=== PATIENT | male | born 1965 | race Caucasian/White ===

== ENCOUNTER 2024-02-05 05:00 | Emergency (ER) | payer OTHER ==
[2024-02-05 05:29] VITALS: TEMP 97
--- NOTE | 2024-02-05 05:36 | ERPHSYRPT ---
- History of Present Illness Source: patient Exam Limitations: clinical condition, intoxication Patient Subjective Stated Complaint: pt states he got drunk, passed out, and hit his back on the tub Triage Nursing Assessment: pt came into the er via wheelchair; pt is axo x4; c/o left mid back pain; no bruising or deformity present to back; pt is moaning, guarding, and facial grimacing; no respiratory distress present; hypotensive; skin PDW Timing/Duration: today Severity: moderate Associated Symptoms: other (Mildly lethargic, left of thoracic level back pain and left-sided rib pain, left of lumbar level back pain and left hip pain) Hx Tetanus, Diphtheria Vaccination/Date Given: Yes Hx Influenza Vaccination/Date Given: No Hx Pneumococcal Vaccination/Date Given: No Immunizations Up to Date: No <HANK ANDRADE - Last Filed: 02/05/24 06:57> <JASMYNE FITZPATRICK - Last Filed: 02/05/24 09:38> - History of Present Illness Time Seen by Provider: 02/05/24 05:25 Physician History: This is a 58-year-old white male patient who presented by private vehicle. Patient states "I got drunk and passed out" he fell in the bathtub and now complains of pain to the left of mid 9 back and left ribs as well as left of lumbar spine level pain and left hip pain patient admits to consuming alcohol, marijuana, and consuming mushrooms last evening. Patient has never been seen in this emergency department in the past. Patient is lethargic but arousable. Patient's systolic blood pressure on admission to the emergency department is 88. Patient has a history of hypertension, hypoglycemia. His blood sugar Accu-Chek number is 87 on arrival to the emergency department. He has a history of sleep apnea, arthritis, and chronic anemia. He also admits to trying to quit smoking and has been prescribed nicotine patches. However, he does continue to do light tobacco smoking. (HANK ANDRADE) Allergies/Adverse Reactions: codeine Adverse Reaction (Verified 02/05/24 05:06) Itching Travel Risk - International Travel Have you traveled outside of the country in past 3 weeks: No - Emerging Infectious Disease Are you exhibiting symptoms associated with any current EIDs: No <HANK ANDRADE - Last Filed: 02/05/24 06:57> - Review of Systems Constitutional: No Symptoms Eyes: No Symptoms Ears, Nose, & Throat: No Symptoms Respiratory: No Symptoms Cardiac: No Symptoms Abdominal/Gastrointestinal: No Symptoms Genitourinary Symptoms: No Symptoms Musculoskeletal: Fall, Injury Skin: No Symptoms Neurological: Lethargy (Arousable) Psychological: Alcohol Abuse Endocrine: No Symptoms Hematologic/Lymphatic: No Symptoms Immunological/Allergic: No Symptoms All Other Systems: Reviewed and Negative <HANK ANDRADE - Last Filed: 02/05/24 06:57> - Past Medical History Pertinent Past Medical History: Yes Neurological History: No Pertinent History ENT History: No Pertinent History Cardiac History: Hypertension Respiratory History: Sleep Apnea Endocrine Medical History: Hypoglycemia Musculoskeletal History: Arthritis, Fractures GI Medical History: GI Bleed, Hernia, Other Psycho-Social History: Depression Male Reproductive Disorders: Prostate Problems Other Medical History: anemia, gout - Past Surgical History Past Surgical History: Yes Neuro Surgical History: No Pertinent History Cardiac: No Pertinent History Respiratory: No Pertinent History Gastrointestinal: No Pertinent History Genitourinary: No Pertinent History Musculoskeletal: Joint Replacement Male Surgical History: No Pertinent History Other Surgical History: any knee replacement, gastric bypass, vein, left ankle - Social History Smoking Status: Light tobacco smoker Exposure to second hand smoke: Yes Drug Use: marijuana, other - Social Determinants of Health Will the patient participate in the screening: Yes Do you worry about a steady place to live?: No Do you have any problems with any of the following?: No known problems In the past 12 months,have you had to go without utilities?: No Transportation Issues: No Has anyone in your support network made you feel unsafe?: No Have you or anyone in your house had to go without enough: No <HANK ANDRADE - Last Filed: 02/05/24 06:57> - Physical Exam General Appearance: no apparent distress, lethargy (Mild but arousable) Eye Exam: PERRL/EOMI, post op pupil defect (L) Ears, Nose, Throat Exam: normal ENT inspection, dry mucous membranes Neck Exam: normal inspection, non-tender, supple, full range of motion, other (Cervical spine cleared clinically) Respiratory Exam: normal breath sounds, airway intact, other (Left posterior lateral rib pain), No chest tenderness, No respiratory distress Cardiovascular Exam: regular rate/rhythm, normal heart sounds, normal peripheral pulses Gastrointestinal/Abdomen Exam: soft, normal bowel sounds, No tenderness Back Exam: normal inspection, decreased range of motion, muscle spasm (Left of thoracic and lumbar levels), No vertebral tenderness Extremity Exam: normal inspection, pelvis stable (Left hip pain to palpation), No deformities Neurologic Exam: alert, oriented x 3, cooperative, 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, normal mood/affect Skin Exam: normal color, warm, dry Lymphatic Exam: No adenopathy SpO2 Interpretation: normal SpO2: 99 O2 Delivery: Room Air <HANK ANDRADE - Last Filed: 02/05/24 06:57> - Nursing Vital Signs Nursing Vital Signs: Initial Vital Signs Pulse Rate 56 L 02/05/24 05:07 Respiratory Rate 16 02/05/24 05:07 Blood Pressure 88/43 02/05/24 05:07 O2 Sat by Pulse Oximetry 95 02/05/24 05:07 Pain Scale Pain Intensity [Left Posterior 7 Back] Pain Intensity 0 - Course Nursing assessment & vital signs reviewed: Yes EKG Interpreted by Me: RATE (58), Sinus Rhythm, NORMAL AXIS, NORMAL INTERVALS, NORMAL QRS, NORMAL ST-T, Other (No acute ischemic changes on today's twelve-lead EKG. No comparison twelve-lead EKG available) <HANK ANDRADE - Last Filed: 02/05/24 06:57> Ordered Tests: Active Orders 24 hr Category Date Time Status Clean Catch Urine Specimen STAT Care 02/05/24 05:58 Active EKG-ER Only STAT Care 02/05/24 05:58 Active IV Insertion STAT Care 02/05/24 05:58 Active CERVICAL SPINE WO CONTRAST [CT] Stat Exams 02/05/24 06:16 Completed CHEST WITHOUT CONTRAST [CT] Stat Exams 02/05/24 05:58 Completed HEAD WITHOUT CONTRAST [CT] Stat Exams 02/05/24 05:58 Completed LUMBAR SPINE W/O [CT] Stat Exams 02/05/24 05:58 Completed PELVIS WITHOUT CONTRAST [CT] Stat Exams 02/05/24 05:58 Completed RECONSTRUCTION [CT] Stat Exams 02/05/24 06:01 Completed ACETAMINOPHEN Stat Lab 02/05/24 05:23 Completed CBC W DIFF Stat Lab 02/05/24 05:23 Completed CMP Stat Lab 02/05/24 05:23 Completed ETHYL ALCOHOL Stat Lab 02/05/24 05:23 Completed POCT GLUCOSE Stat Lab 02/05/24 05:31 Completed SALICYLATE Stat Lab 02/05/24 05:23 Completed UA W/RFX UR CULTURE Stat Lab 02/05/24 09:08 Completed Urine Triage Profile Stat Lab 02/05/24 09:08 Received Medication Summary Generic Name Dose Route Start Last Admin Trade Name Yuliya PRN Reason Stop Dose Admin Sodium Chloride 1,000 mls @ 999 mls/hr 02/05/24 08:00 02/05/24 09:07 Sodium Chloride 0.9% 1000 Ml IV 02/05/24 08:01 Infused .Q1H1M WALLY Infusion Discontinued Medications Generic Name Dose Route Start Last Admin Trade Name Yuliya PRN Reason Stop Dose Admin Sodium Chloride 1,000 mls @ 999 mls/hr 02/05/24 05:58 02/05/24 07:15 Sodium Chloride 0.9% 1000 Ml IV 02/05/24 06:58 Infused .Q1H1M STA Infusion Sodium Chloride Confirm 02/05/24 06:03 Sodium Chloride 0.9% 1000 Ml Administered 02/05/24 06:04 Dose 1,000 mls @ ud .ROUTE .STK-MED ONE Ondansetron HCl 4 mg 02/05/24 05:58 02/05/24 06:06 Ondansetron Hcl 4 Mg/2 Ml Vial IV 02/05/24 05:59 4 mg STAT ONE Administration Ondansetron HCl Confirm 02/05/24 06:03 Ondansetron Hcl 4 Mg/2 Ml Vial Administered 02/05/24 06:04 Dose 4 mg .ROUTE .STK-MED ONE Lab/Rad Data: Laboratory Result Diagrams 02/05/24 05:23 02/05/24 05:23 Laboratory Results 02/05/24 02/05/24 02/05/24 Range/Units 09:08 05:31 05:23 WBC (4.0-10.5) x10^3/uL RBC (4.1-5.6) x10^6/uL Hgb (12.5-18.0) g/dL Hct (42-50) % MCV (78-100) fL MCH (26-32) pg MCHC (32-36) g/dL RDW (11.5-14.0) % Plt Count (150-450) x10^3/uL MPV (7.5-11.0) fL Gran % (36.0-66.0) % Immature Gran % (Auto) (0.00-0.4) % Nucleat RBC Rel Count (0.00-0.1) % Eos # (Auto) (0-0.5) x10^3/uL Immature Gran # (Auto) (0.00-0.03) x10^3u/L Absolute Lymphs (auto) (1.0-4.6) x10^3/uL Absolute Monos (auto) (0.0-1.3) x10^3/uL Absolute Nucleated RBC (0.00-0.01) x10^3u/L Lymphocytes % (24.0-44.0) % Monocytes % (0.0-12.0) % Eosinophils % (0.00-5.0) % Basophils % (0.0-0.4) % Absolute Granulocytes (1.4-6.9) x10^3/uL Basophils # (0-0.4) x10^3/uL Sodium 141 (135-145) mmol/L Potassium 3.9 (3.5-5.1) mmol/L Chloride 107 (98-107) mmol/L Carbon Dioxide 19 L (22-30) mmol/L Anion Gap 19.0 H (5-15) MEQ/L BUN 22 H (9-20) mg/dL Creatinine 1.85 H (0.66-1.25) mg/dL Estimated GFR 42.2 ML/MIN Glucose 97 (74-106) mg/dL POC Glucometer 87 (74 to 106) mg/dL Calcium 9.0 (8.4-10.2) mg/dL Total Bilirubin 0.40 (0.2-1.3) mg/dL AST 27 (17-59) U/L ALT 21 (0-50) U/L Alkaline Phosphatase 98 (38-126) U/L Serum Total Protein 8.3 H (6.3-8.2) g/dL Albumin 5.0 (3.5-5.0) g/dL Urine Color Yellow (Yellow) Urine Appearance Clear (Clear) Urine pH 5.5 (4.6-8.0) Ur Specific [place] 1.015 (1.005-1.030) Urine Protein 30 (Negative) Urine Glucose (UA) Negative (Negative) mg/dL Urine Ketones Negative (Negative) Urine Blood Small A (Negative) Urine Nitrite Negative (Negative) Urine Bilirubin Negative (Negative) Urine Urobilinogen 1.0 A (0.2) mg/dL Ur Leukocyte Esterase Negative (Negative) Urine Microscopic RBC 0-2 (0-5) /HPF Urine Microscopic WBC 0-2 (0-5) /HPF Ur Epithelial Cells Rare (None Seen) /HPF Urine Bacteria None Seen (None Seen) /HPF Granular Casts 0-2 A (None Seen) /LPF Urine Culture Reflexed NO (NO) Salicylates < 1.0 L (2-20) mg/dL Acetaminophen < 10 L (10-30) ug/ml Ethyl Alcohol 116 H (0-10) mg/dL 02/05/24 Range/Units 05:23 WBC 11.5 H (4.0-10.5) x10^3/uL RBC 4.24 (4.1-5.6) x10^6/uL Hgb 14.1 (12.5-18.0) g/dL Hct 42.2 (42-50) % MCV 99.5 (78-100) fL MCH 33.3 H (26-32) pg MCHC 33.4 (32-36) g/dL RDW 13.2 (11.5-14.0) % Plt Count 231 (150-450) x10^3/uL MPV 10.5 (7.5-11.0) fL Gran % 85.4 H (36.0-66.0) % Immature Gran % (Auto) 0.6 H (0.00-0.4) % Nucleat RBC Rel Count 0.0 (0.00-0.1) % Eos # (Auto) 0.01 (0-0.5) x10^3/uL Immature Gran # (Auto) 0.07 H (0.00-0.03) x10^3u/L Absolute Lymphs (auto) 0.86 L (1.0-4.6) x10^3/uL Absolute Monos (auto) 0.70 (0.0-1.3) x10^3/uL Absolute Nucleated RBC 0.00 (0.00-0.01) x10^3u/L Lymphocytes % 7.5 L (24.0-44.0) % Monocytes % 6.1 (0.0-12.0) % Eosinophils % 0.1 (0.00-5.0) % Basophils % 0.3 (0.0-0.4) % Absolute Granulocytes 9.80 H (1.4-6.9) x10^3/uL Basophils # 0.03 (0-0.4) x10^3/uL Sodium (135-145) mmol/L Potassium (3.5-5.1) mmol/L Chloride (98-107) mmol/L Carbon Dioxide (22-30) mmol/L Anion Gap (5-15) MEQ/L BUN (9-20) mg/dL Creatinine (0.66-1.25) mg/dL Estimated GFR ML/MIN Glucose (74-106) mg/dL POC Glucometer (74 to 106) mg/dL Calcium (8.4-10.2) mg/dL Total Bilirubin (0.2-1.3) mg/dL AST (17-59) U/L ALT (0-50) U/L Alkaline Phosphatase (38-126) U/L Serum Total Protein (6.3-8.2) g/dL Albumin (3.5-5.0) g/dL Urine Color (Yellow) Urine Appearance (Clear) Urine pH (4.6-8.0) Ur Specific [place] (1.005-1.030) Urine Protein (Negative) Urine Glucose (UA) (Negative) mg/dL Urine Ketones (Negative) Urine Blood (Negative) Urine Nitrite (Negative) Urine Bilirubin (Negative) Urine Urobilinogen (0.2) mg/dL Ur Leukocyte Esterase (Negative) Urine Microscopic RBC (0-5) /HPF Urine Microscopic WBC (0-5) /HPF Ur Epithelial Cells (None Seen) /HPF Urine Bacteria (None Seen) /HPF Granular Casts (None Seen) /LPF Urine Culture Reflexed (NO) Salicylates (2-20) mg/dL Acetaminophen (10-30) ug/ml Ethyl Alcohol (0-10) mg/dL <HANK ANDRADE - Last Filed: 02/05/24 06:57> - Progress Progress: improved Counseled pt/family regarding: lab results, diagnosis, need for follow-up, rad results, smoking cessation <JASMYNE FITZPATRICK - Last Filed: 02/05/24 09:38> - Progress Progress Note: 02/05/24 06:08 My medical decision making and the assignment of moderate complexity to this patient's medical issue today is based on review of the patient's past medical history, review the patient's medication list, review the patient's allergy list, history present illness and physical findings on examination. The workup in this patient includes placement of intravenous line, infusion of normal saline solution, infusion of Zofran intravenously, CBC, CMP, urinalysis, urine d rug screen, ethyl alcohol level, salicylate level, acetaminophen level, CT scan of the head, CT scan of the chest with reconstruction of the thoracic spine, CT scan of the lumbar spine and CT scan of the pelvis with specific attention to the left hip. Differential diagnosis includes alcohol intoxication, positive illicit drug screen, intracranial abnormality secondary to fall, arrhythmia, acute injury to thoracic and lumbar spine as well as left ribs and left hip 02/05/24 06:57 I am transferring care of this patient to Dr. Fitzpatrick at shift change. He will follow-up on the results of the studies and make final disposition. (HANK ANDRADE) 02/05/24 09:31 Patient is checked out to me at end of Dr. Andrade shift with pending workup. Patient presented with complaint of fall after having alcohol, smoking marijuana and using some mushrooms. Patient initially was mildly hypotensive, given fluid boluses and during my evaluation blood pressure is improved and currently it is 133 systolic. Patient is moving all 4 extremities, complaining of pain in the left posterolateral rib area and some back pain. Patient workup showed white count of 11, some ZOILA with a creatinine of 1.85, no previous comparison available. Does have alcohol of 116. CT head cervical spine thoracic and lumbar spine are negative for any acute trauma related findings. Negative CT pelvis. CT chest showed mildly displaced left posterolateral eighth/ninth/10th rib fracture with no pneumo or hemothorax. Patient is on room air around 96%. Discussed the results of workup with patient and plan of care with lidocaine patches/Tylenol and deep breathing exercises/outpatient follow-up which she understand and agrees. Patient is not confused or altered at all during my evaluation. Discussed signs symptoms of worsening needing return to ER which he seems understanding as well. (JASMYNE FITZPATRICK) Medical Desision Making - Diagnostic Testing Radiological Interpretation: Reviewed by me, Teleradiologist Report - Risk of complications The pt has a mod risk of morbidity or mortality based on: Need for prescription drug management <JASMYNE FITZPATRICK - Last Filed: 02/05/24 09:38> - Departure Departure Disposition: Home Critical Care Time: No <HANK ANDRADE - Last Filed: 02/05/24 06:57> - Departure Critical Care Time: No <JASMYNE FITZPATRICK - Last Filed: 02/05/24 09:38> - Departure Clinical Impression: Fall, Alcohol intoxication, Ribs, multiple fractures Condition: Stable Referrals: DOCTOR,NO FAMILY [Primary Care Provider] - Follow up with PCP 1 day Instructions: Rib Fracture or Bruised Rib ED Additional Instructions: Deep breathing exercises. Take Tylenol/ibuprofen as needed for pain. Do not drink alcohol/do not smoke marijuana or any other substance abuse. Follow-up with primary care for reevaluation. Return to ER for intractable pain, difficulty breathing, numbness tingling weakness of extremities etc. Prescriptions: Lidocaine HCl 5% Patch [Lidoderm Patch 5%] 1 patch TP DAILY 12 Days #12 patch
[2024-02-05] MEDS ORDERED: Zofran 4 MG/2 ML VIAL ONE (06:03)
[2024-02-05] MEDS ORDERED: Sodium Chloride 0.9% 1000 ML 1,000 ML ONE ×2 (06:03→08:01)
[2024-02-05] MEDS: Sodium Chloride 0.9% 1000 ML 1,000 ML IV STA (06:06)
[2024-02-05] MEDS: Zofran 4 MG/2 ML VIAL IV ONE (06:06)
[2024-02-05 06:16] LABS: BASOPHIL % 0.3 % (0.0-0.4); Basophil (Absolute #) 0.03 x10^3/uL (0-0.4); Eosinophil % 0.1 % (0.00-5.0); Eosinophil (Absolute #) 0.01 x10^3/uL (0-0.5); Hematocrit 42.2 % (42-50); Hemoglobin 14.1 g/dL (12.5-18.0); IMMATURE GRAN # 0.07 x10^3u/L (0.00-0.03); IMMATURE GRAN % 0.6 % (0.00-0.4); Lymphocyte (Absolute #) 0.86 x10^3/uL (1.0-4.6); Lymphocytes % 7.5 % (24.0-44.0); Mean Cell Volume 99.5 fL (78-100); Mean Corpuscular Hemoglobin 33.3 pg (26-32); Mean Corpuscular Hgb Concent. 33.4 g/dL (32-36); Mean Platelet Volume 10.5 fL (7.5-11.0); Monocytes % 6.1 % (0.0-12.0); Neutrophil % 85.4 % (36.0-66.0); Platelet Count 231 x10^3/uL (150-450); Red Blood Count 4.24 x10^6/uL (4.1-5.6); Red Cell Distribution Width 13.2 % (11.5-14.0); White Blood Count 11.5 x10^3/uL (4.0-10.5)
[2024-02-05 06:34] LABS: ACETAMINOPHEN < 10 ug/ml (10-30); ALKALINE PHOSPHATASE 98 U/L (38-126); BLOOD UREA NITROGEN 22 mg/dL (9-20); CHLORIDE 107 mmol/L (98-107); Carbon Dioxide 19 mmol/L (22-30); Creatinine 1 1.85 mg/dL (0.66-1.25); EST GLOMERULAR FILTRATION RATE 42.2 ML/MIN; ETHYL ALCOHOL 116 mg/dL (0-10); Glucose 97 mg/dL (74-106); Potassium 3.9 mmol/L (3.5-5.1); SALICYLATE < 1.0 mg/dL (2-20); SGOT/AST 27 U/L (17-59); SGPT/ALT 21 U/L (0-50); SODIUM 141 mmol/L (135-145); Total Protein 8.3 g/dL (6.3-8.2)
--- NOTE | 2024-02-05 07:45 | XRAY ---
CLINICAL HISTORY: Fall injury COMPARISON: None TECHNIQUE: Multiple contiguous axial images were obtained through the thoracic spine without IV contrast. Sagittal and coronal reformatted images were obtained from the axial data. CT scan was performed according to ALARA (as low as reasonably achievable). FINDINGS: The alignment of the thoracic spine is maintained. Mild degenerative changes are seen in the thoracic spine, in form of anterior endplate osteophytes in the thoracic vertebrae at multiple levels. Thoracic vertebral bodies are maintained in height and alignment. No vertebral destructive changes are seen. C7-T1: No disc bulge. No canal stenosis. No neuroforaminal narrowing. T1-T2: No disc bulge. No canal stenosis. No neuroforaminal narrowing. T2-T3: No disc bulge. No canal stenosis. No neuroforaminal narrowing. T3-T4: No disc bulge. No canal stenosis. No neuroforaminal narrowing. T4-T5: No disc bulge. No canal stenosis. No neuroforaminal narrowing. T5-T6: No disc bulge. No canal stenosis. No neuroforaminal narrowing. T6-T7: No disc bulge. No canal stenosis. No neuroforaminal narrowing. T7-T8: No disc bulge. No canal stenosis. No neuroforaminal narrowing. T8-T9: No disc bulge. No canal stenosis. No neuroforaminal narrowing. T9-T10: No disc bulge. No canal stenosis. No neuroforaminal narrowing. T10-T11: No disc bulge. No canal stenosis. No neuroforaminal narrowing. T11-T12: No disc bulge. No canal stenosis. No neuroforaminal narrowing. Paravertebral soft tissues are unremarkable. Small non-obstructive calculi seen in bilateral kidneys and small foci of calcification (likely old calcified granuloma) are seen in spleen. IMPRESSION: 1. No acute fracture, collapse, dislocation or subluxation seen in the thoracic spine. 2. No significant disc bulge, causing cord compression or nerve root impingement seen. 3. Mild degenerative changes in the thoracic spine. 4. Small non-obstructive calculi in bilateral kidneys and small foci of calcification (likely old calcified granuloma) in spleen. Electronically Signed by: Bronson Diaz MD. (02/05/2024 07:40:38 EDT)
[2024-02-05] MEDS: Sodium Chloride 0.9% 1000 ML 1,000 ML IV SCH (08:01)
--- NOTE | 2024-02-05 08:09 | XRAY ---
CLINICAL HISTORY: Fall injury COMPARISON: None TECHNIQUE: Multiple contiguous axial images were obtained through the lumbar spine without IV contrast. Sagittal and coronal reformatted images were obtained from the axial data. CT scan was performed according to ALARA (as low as reasonably achievable). FINDINGS: The normal lordotic curvature of the lumbar spine is maintained. Degenerative changes are seen in the lumbar spine, in the form of small anterior and posterior endplate osteophytes in the lumbar vertebrae at multiple levels and facetal arthropathy in the lower lumbar region. There is grade I anterolisthesis of L4 over L5 without spondylolysis. Rest of the lumbar vertebral bodies are maintained in height and alignment. No vertebral destructive changes are seen. T12-L1: No disc bulge, canal stenosis or neuroforaminal narrowing. Subarticular recesses are patent. L1-L2: No disc bulge, canal stenosis or neuroforaminal narrowing. Subarticular recesses are patent. L2-L3 and L3-L4: Diffuse disc bulge (approximately 3-4 mm), causing anterior thecal sac indentation, mild to moderate narrowing of bilateral lateral recesses and neural foramina, without causing significant canal narrowing or obvious nerve root impingement. L4-L5: Diffuse disc bulge (approximately 5 to 6 mm), causing anterior thecal sac indentation, narrowing of bilateral lateral recesses and mild canal narrowing. L5-S1: Disc osteophyte complex (approximately 4-5 mm), causing anterior thecal sac indentation, narrowing of bilateral lateral recesses left more than right), caus with possible left sided nerve root impingement at this level. Paravertebral soft tissues are unremarkable. Bilateral renal calculi - concretion seen. Multiple small foci of calcification are seen in the spleen, likely old calcified granulomas. Note is also made of small bowel lipoma in the right subhepatic region. IMPRESSION: 1. No obvious vertebral fracture, dislocation, subluxation or collapse seen in the lumbar spine. 2. Multilevel diffuse disc bulge and disc osteophyte complexes in the lumbar spine as described above. 3. Degenerative - spondylotic changes as described above. 4. Bilateral renal calculi - concretion seen. 5. Multiple small foci of calcification in the spleen, likely old calcified granulomas. 6. Small bowel lipoma in the right subhepatic region. Electronically Signed by: Bronson Diaz MD. (02/05/2024 08:04:20 EDT)
--- NOTE | 2024-02-05 08:13 | XRAY ---
CLINICAL HISTORY: Fall injury COMPARISON: None TECHNIQUE: Contiguous axial images of lower abdomen - pelvis and upper thigh were obtained without intravenous or oral contrast. Coronal and sagittal reconstructions were likewise performed and indicated to increase the sensitivity for detecting clinically relevant pathology. CT scan was performed according to ALARA (as low as reasonably achievable). FINDINGS: A small bowel lipoma is seen in the right subhepatic space, measuring approximately 24 x 11 mm. A calculus of size approximately 14 x 12.5 mm, is seen in the urinary bladder. The prostate is enlarged and is seen to indent upon the bladder base, measures approximately 40 x 42 mm in bi-axial dimensions.There is umbilical hernia with herniated fat No adenopathy or fluid collections are seen. The visualized infrarenal abdominal aorta is normal in caliber. There are prominent osteophytes - new bone formation adjacent to the left inferior pubic ramus. There is likely evidence of old fracture of coccyx with mild postero-superior displacement of the second coccygeal segment. Otherwise, bilateral pelvic bones, bilateral proximal femora, sacrum and coccyx and visualized lower lumbar vertebrae are unremarkable. Bilateral acetabulofemoral joints and bilateral sacro-iliac joints are unremarkable. There is no obvious subluxation or dislocation. Visualized muscles of pelvis and gluteal region and adipose tissue of the gluteal region are unremarkable. IMPRESSION: 1. No acute fracture or dislocation seen. 2. A small, small bowel lipoma in the right subhepatic space. 3. Vesical calculus. 4. Prostatomegaly. 5. Umbilical hernia. 6. Prominent osteophytes - new bone formation adjacent to the left inferior pubic ramus. 7. Likely old fracture of coccyx with mild postero-superior displacement of the second coccygeal segment. Electronically Signed by: Bronson Diaz MD. (02/05/2024 08:09:32 EDT)
--- NOTE | 2024-02-05 08:19 | XRAY ---
CLINICAL HISTORY: Fall injury COMPARISON: None TECHNIQUE: Multiple axial images are obtained from the skull base to the vertex without contrast. CT scan was performed according to ALARA (as low as reasonably achievable). FINDINGS: The brain shows normal morphology, attenuation, and volume for age. No evidence of space occupying lesion, hemorrhage, edema, mass effect, midline shift, extra axial collection, or hydrocephalus is noted. Ventricles, sulci, and basal cisterns are symmetric and normal in size and configuration. The perez-white matter differentiation is preserved. Visualized paranasal sinuses and mastoid air cells are well aerated. Orbital contents are within normal limits. Bony structures are intact. IMPRESSION: 1. No evidence of acute intracranial abnormality is demonstrated. Electronically Signed by: Bronson Diaz MD. (02/05/2024 08:14:30 EDT)
--- NOTE | 2024-02-05 08:23 | XRAY ---
CLINICAL HISTORY: Fall injury COMPARISON: None. TECHNIQUE: Contiguous axial images were obtained from the neck base through the upper abdomen without contrast. In addition, sagittal and coronal reconstructions were performed to potentially increase the sensitivity for the detection of disease. CT scan was performed according to ALARA (as low as reasonable achievable). FINDINGS: The lungs are clear, with no focal areas of consolidation. No pulmonary nodules are seen. The central airways are patent. There are no pleural effusions. No pneumothorax is seen. Evaluation of the mediastinum and benoit is limited due to the lack of intravenous contrast. No axillary or mediastinal adenopathy is identified. The thyroid is unremarkable. The heart, aorta, and pulmonary arteries are of normal size and configuration. There are no appreciable coronary artery and aortic atherosclerotic calcifications. No pericardial effusion is identified. There are mildly displaced fractures of left 8th, 9th and 10th postero-lateral ribs. Degenerative changes are seen in the visualised dorsal spine. No aggressive appearing osseous lesions are identified. Surgical sutures are seen in the lower esophagus and stomach hoffman. Multiple calcified nodules are seen in the spleen. Two non obstructive calculi measuring 7 and 2.8mm are seen in the left renal calyces. IMPRESSION: 1. Mildly displaced fractures of left 8th, 9th and 10th postero-lateral ribs. 2. Calcified nodules in spleen - old calcified granulomas. 3. Non obstructive left renal calculi. Electronically Signed by: Bronson Diaz MD. (02/05/2024 08:18:31 EDT)
--- NOTE | 2024-02-05 08:25 | XRAY ---
CLINICAL HISTORY: Fall injury COMPARISON: None TECHNIQUE: Computed tomography of the cervical spine performed without intravenous contrast. Contiguous axial images were obtained from the skull base to T2, with sagittal and coronal reformatted images reconstructed from the axial data. CT scan was performed according to ALARA (as low as reasonably achievable). FINDINGS: There is mild straightening of normal cervical lordotic curvature, likely positional or due to muscular spasm. Degenerative changes are seen in cervical spine in form of anterior endplate and posterior uncovertebral osteophytes in the cervical vertebrae at multiple levels, with multilevel uncinate hypertrophy and facetal arthropathy and resultant variable multilevel bilateral neural foraminal narrowing. Cervical vertebral bodies are normal in height and alignment, with no evidence of fracture or subluxation. Lateral masses of C1 are symmetrical, and the dens is intact. Prevertebral soft tissues are not widened. The remaining suprahyoid and infrahyoid soft tissues in the neck are unremarkable. C2-C3: No significant disc bulge or mass effect on the cord. C3-C4 and C4-C5: Diffuse disc bulge (approximately 3-4 mm), causing anterior thecal sac indentation, narrowing of bilateral neural foramina without significant cord compression or obvious nerve root impingement. C5-C6, C6-C7 and C7-T1: Reduced height of intervertebral disc spaces with endplate irregularity and sclerosis at these levels. Disc osteophyte complexes (measuring approximately 3 to 5 mm), causing anterior thecal sac indentation and narrowing of bilateral neural foramina, without causing significant canal narrowing or cord compression. IMPRESSION: 1. No obvious acute vertebral fracture, dislocation, or collapse seen in the cervical spine. 2. Reduced height of intervertebral disc spaces with endplate irregularity and sclerosis and disc osteophyte complexes (measuring approximately 3 to 5 mm) at C5-C6 and C6-C7 levels, causing anterior thecal sac indentation and narrowing of bilateral neural foramina at their respective levels, without causing significant canal narrowing or cord compression. 3. Diffuse disc bulge (approximately 3-4 mm) at C3-C4 and C4-C5 levels, causing anterior thecal sac indentation, narrowing of bilateral neural foramina without significant cord compression or obvious nerve root impingement. 4. Mild straightening of the cervical lordotic curvature. 5. Degenerative changes - spondylotic changes in the cervical spine as described above. Electronically Signed by: Bronson Diaz MD. (02/05/2024 08:20:42 EDT)
[2024-02-05 09:21] LABS: Appearance Clear (Clear); Bacteria None Seen /HPF (None Seen); Bilirubin Negative (Negative); Blood Small (Negative); Epithelial Cells Rare /HPF (None Seen); Glucose, Urine Negative (Negative); Ketones Negative (Negative); Leukocyte Esterase Negative (Negative); Nitrite Negative (Negative); Ph 5.5 (4.6-8.0); Protein,Urine Dip 30 (Negative); RBC 0-2 /HPF (0-5); Specific Gravity 1.015 (1.005-1.030); WBC 0-2 /HPF (0-5)
[2024-02-05 09:27] LABS: ADD URINE CULTURE? NO (NO)
[2024-02-05 09:31] LABS: Granular Casts 0-2 /LPF (None Seen)
[2024-02-05 09:40] VITALS: BP 128/77; PULSE 71; RESP 23; O2SAT 100
[2024-02-05 09:50] LABS: Amphetamine,Urine NEGATIVE (NEGATIVE); Barbiturate,Urine NEGATIVE (NEGATIVE); Benzodiazepine,Urine NEGATIVE (NEGATIVE); Cocaine,Urine NEGATIVE (NEGATIVE); Methadone,Urine NEGATIVE (NEGATIVE); Opiate,Urine NEGATIVE (NEGATIVE); PCP,Urine NEGATIVE (NEGATIVE); THC,Urine POSITIVE (NEGATIVE)
== END 2024-02-05 09:50 | disposition home or self-care (01) ==
LOC: ED 05:00
DX: S22.42XA Multiple fractures of ribs, left side, initial encounter for closed fracture (principal); W01.198A Fall on same level from slipping, tripping and stumbling with subsequent striking against other object, initial encounter; Y92.002 Bathroom of unspecified non-institutional (private) residence as the place of occurrence of the external cause; F10.129 Alcohol abuse with intoxication, unspecified; Y90.5 Blood alcohol level of 100-119 mg/100 ml; M54.6 Pain in thoracic spine; R07.81 Pleurodynia; M54.50 Low back pain, unspecified; M25.552 Pain in left hip; I10 Essential (primary) hypertension; Z72.0 Tobacco use
CPT/HCPCS: 36000; 36415; 70450; 71250; 72125; 72131; 72192; 76376; 80053; 80143; 80179; 80307; 81001; 82077; 82947; 85025; 93005; 96374; 99284; J2405